=== PATIENT | male | born 1960 | race Caucasian/White ===

== ENCOUNTER 2019-07-02 03:29 | Emergency (ER) | payer BC ==
[~2019-07-02] VITALS: Ht 175.3 cm; Wt 80.7 kg
--- NOTE | 2019-07-02 03:35 | NUR ---
Pt arrived to ER. Dr. Estrella at bedside for MSE.
--- NOTE | 2019-07-02 03:36 | NUR ---
Code Stroke Activated
--- NOTE | 2019-07-02 03:38 | NUR ---
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
--- NOTE | 2019-07-02 03:38 | NUR ---
IV started on left AC 20G
--- NOTE | 2019-07-02 03:39 | NUR ---
Home [facility] Travel Pt at bedside, blood drawn.
--- NOTE | 2019-07-02 03:41 | NUR ---
Pt out of ER for CT.
[2019-07-02] MEDS ORDERED: IV NORMAL SALINE 1000 ML BAG IV ONE (03:45)
--- NOTE | 2019-07-02 03:50 | NUR ---
Called [facility] spoke with Maria Del Rosario and informed him of a new stroke patient. Dr Montano neurologist will call back.
[2019-07-02 03:51] LABS: BASOPHILS % (AUTO) 0.5 % (0.0-2.0); EOSINOPHILS % (AUTO) 0.8 % (0.0-7.0); HEMATOCRIT 41.6 % (36.7-47.1); LYMPHOCYTES # (AUTO) 1.7 K/uL (20.0-40.0); LYMPHOCYTES % (AUTO) 35.4 % (20.5-51.5); MEAN CORPUSCULAR HEMOGLOBIN 30.9 uug (23.8-33.4); MEAN CORPUSCULAR HGB CONC 34 g/dL (32.5-36.3); MEAN CORPUSCULAR VOLUME 91.9 fL (73.0-96.2); MONOCYTES # (AUTO) 0.5 K/uL (2.0-10.0); MONOCYTES % (AUTO) 10.3 % (0.0-11.0); NEUTROPHILS # (AUTO) 2.5 K/uL (1.8-8.9); PLATELET COUNT (AUTO) 170 K/uL (152-348); RED BLOOD CELL COUNT(AUTO) 4.52 MIL/uL (4.06-5.63); WHITE BLOOD COUNT (AUTO) 4.8 K/uL (3.6-10.2)
--- NOTE | 2019-07-02 03:51 | NUR ---
Xray taken in radiology
--- NOTE | 2019-07-02 03:55 | NUR ---
Patient back to ER from CT.
[2019-07-02 03:58] LABS: CREATININE 1.3 mg/dL (0.6-1.3); POTASSIUM 3.6 mmol/L (3.5-5.1)
--- NOTE | 2019-07-02 04:00 | NUR ---
Dr Estrella spoke with Tele Neurologist Dr Montano.
--- NOTE | 2019-07-02 04:05 | NUR ---
Pt out of ER for CTA.
[2019-07-02] MEDS ORDERED: SWABABLE VALVE TRANSFER SET EA MC ONE (04:08)
[2019-07-02] MEDS ORDERED: IOHEXOL 350 100 ML INFUS..BTL ONE (04:08)
[2019-07-02] MEDS ORDERED: IV NORMAL SALINE 250 ML IV ONE (04:08)
[2019-07-02 04:14] LABS: BILIRUBIN,DIRECT 0.1 mg/dL (0.0-0.2); BILIRUBIN,TOTAL 0.3 mg/dL (0.2-1.0); TOTAL PROTEIN, SERUM 6.4 g/dL (6.4-8.2)
--- NOTE | 2019-07-02 04:25 | NUR ---
Pt back to ER from CTA.
[2019-07-02] MEDS ORDERED: ASPIRIN 325 MG TABLET PO ONE (04:30)
[2019-07-02] MEDS ORDERED: ASPIRIN 325 MG TABLET ONE (04:30)
--- NOTE | 2019-07-02 04:30 | NUR ---
Swallow Evaluation complete, pt able to swallow without choking.
--- NOTE | 2019-07-02 04:58 | NUR ---
Patient discharged to home in stable conditon. Written and verbal after care instructions given. Patient verbalizes understanding of instructions. Patient out of ER with steady gait, no acute signs of distress, VSS, all belongings taken, IV site discontinued.
[2019-07-02 05:02] VITALS: BP 141/95
== END 2019-07-02 05:03 | disposition home or self-care (01) ==
LOC: ER 03:39
DX: G45.9 Transient cerebral ischemic attack, unspecified (principal)
CPT/HCPCS: 36415; 70450; 70460; 71045; 80048; 80061; 80076; 83605; 84484; 85025; 85730; 87040; 93005; 99284; Q9967; 70030-TC; A4663; J7030; J7050

== ENCOUNTER 2025-04-21 21:44 | Emergency (ER) | payer BC, OTHER ==
[~2025-04-21] VITALS: Ht 177.8 cm; Wt 79.4 kg
[2025-04-21 22:46] VITALS: BP 140/89
[2025-04-21] MEDS ORDERED: TDAP DIPH,PERTUSS,TET VAC/PF 0.5 ML DISP.SYRIN IM ONE (23:45)
[2025-04-22] MEDS ORDERED: IBUPROFEN 600 MG TABLET ONE (00:17)
[2025-04-22] MEDS ORDERED: AMOXICILLIN-CLAVUL 875-125MG TABLET ONE (00:17)
[2025-04-22] MEDS ORDERED: AMOX-430 PO (00:17)
[2025-04-22] MEDS ORDERED: ACETAMINOPHEN 500 MG TABLET ONE (00:17)
[2025-04-22] MEDS ORDERED: TDAP DIPH,PERTUSS,TET VAC/PF 0.5 ML DISP.SYRIN IM ONE (00:18)
[2025-04-22] MEDS: AMOXICILLIN-CLAVUL 875-125MG TABLET PO ONE (00:24)
[2025-04-22] MEDS: IBUPROFEN 600 MG TABLET PO ONE (00:24)
[2025-04-22] MEDS: ACETAMINOPHEN 500 MG TABLET PO ONE (00:24)
[2025-04-22 05:51] VITALS: BP 140/89; TEMP 98; O2SAT 98
== END 2025-04-22 05:52 | disposition home or self-care (01) ==
LOC: ER 21:53
DX: S61.452A Open bite of left hand, initial encounter (principal); L08.9 Local infection of the skin and subcutaneous tissue, unspecified; R03.0 Elevated blood-pressure reading, without diagnosis of hypertension; Z86.73 Personal history of transient ischemic attack (TIA), and cerebral infarction without residual deficits; Z87.440 Personal history of urinary (tract) infections; W54.0XXA Bitten by dog, initial encounter; Y93.89 Activity, other specified; Y92.89 Other specified places as the place of occurrence of the external cause; Y99.8 Other external cause status
CPT/HCPCS: 90715; A4606; A4663; A9150